=== PATIENT | male | born 1990 | race Caucasian/White ===

== ENCOUNTER 2016-12-04 11:52 | Emergency (ER) | payer SELFPAY | END 2016-12-04 13:39 | disposition home or self-care (01) | LOC: D.ER 11:52 | DX: S92.102A Unspecified fracture of left talus, initial encounter for closed fracture (principal); W20.8XXA Other cause of strike by thrown, projected or falling object, initial encounter; Y93.89 Activity, other specified; Y92.89 Other specified places as the place of occurrence of the external cause; F17.200 Nicotine dependence, unspecified, uncomplicated ==

== ENCOUNTER 2017-04-13 14:59 | Emergency (ER) | payer OTHER | END 2017-04-13 18:40 | disposition home or self-care (01) | LOC: D.ER 14:59 | DX: M25.572 Pain in left ankle and joints of left foot (principal); F17.200 Nicotine dependence, unspecified, uncomplicated ==